=== PATIENT | female | born 1995 | race Caucasian/White ===

== ENCOUNTER 2018-06-17 23:14 | Inpatient (IN) | payer MEDICAID | END 2018-06-26 09:20 | disposition left against medical advice (07) | LOC: PCU 3S 06-18 03:00 → ER 23:14 → PCU 3S 06-18 03:05 ==

== ENCOUNTER 2018-10-14 08:09 | Emergency (ER) | payer MEDICAID ==
[~2018-10-14] VITALS: Ht 167.6 cm; Wt 63.6 kg
[~2018-10-14 08:09] MED LIST: NO HOME MEDS
[2018-10-14 08:51] LABS: BASOPHILS # (AUTO) 0.1 X10'3 (0-0.2); BASOPHILS % (AUTO) 1.2 % (0-1); EOSINOPHILS # (AUTO) 0.1 X10'3 (0-0.9); EOSINOPHILS % (AUTO) 1.1 % (0-6); HEMATOCRIT 38.1 % (35.0-45.0); LYMPHOCYTES # (AUTO) 2.7 X10'3 (1.1-4.8); MEAN CORPUSCULAR HEMOGLOBIN 32.2 PG (27.0-31.0); MEAN CORPUSCULAR HGB CONC 34.1 g/dL (33.0-36.5); MEAN CORPUSCULAR VOLUME 94.5 FL (78-98); MEAN PLATELET VOLUME 7.4 FL (7.4-10.4); MONOCYTES # (AUTO) 0.5 X10'3 (0-0.9); MONOCYTES % (AUTO) 7.8 % (2-12); NEUTROPHILS # (AUTO) 3.2 X10'3 (1.8-7.7); NEUTROPHILS % (AUTO) 48.9 % (42-75); PLATELET COUNT 262 X10'3 (140-440); RED BLOOD COUNT 4.03 X10'6 (4.20-5.60); RED CELL DISTRIBUTION WIDTH 15.3 % (11.5-14.5); WHITE BLOOD COUNT 6.6 X10'3 (4.5-11.0)
--- NOTE | 2018-10-14 08:57 | NUR ---
provider with patient.
[2018-10-14 09:07] LABS: ALANINE AMINOTRANSFERASE 39 U/L (12-78); ALBUMIN 4.3 G/DL (3.4-5.0); ALKALINE PHOSPHATASE 55 IU/L (46-116); ANION GAP 12 (8-16); ASPARTATE AMINO TRANSFERASE 38 U/L (10-37); BILIRUBIN,TOTAL 0.2 MG/DL (0.1-1.0); BLOOD UREA NITROGEN 8 MG/DL (7-18); BUN/CREATININE RATIO 11.3 (6.6-38.0); CALCIUM 8.5 MG/DL (8.5-10.1); CHLORIDE 108 MMOL/L (99-107); CREATININE 0.71 MG/DL (0.40-0.90); GLUCOSE 102 MG/DL (70-104); POTASSIUM 4.5 MMOL/L (3.5-5.1); SODIUM 145 MMOL/L (135-145); TOTAL CARBON DIOXIDE 24.8 MMOL/L (24-32); TOTAL PROTEIN 8.4 G/DL (6.4-8.2); eGFR > 90 ML/MIN
[2018-10-14 09:08] LABS: ETHANOL 0.448 GM/DL (0.0-0.010)
--- NOTE | 2018-10-14 09:13 | NUR ---
pt to overflow after provider care, no nurse to give report to at this time.
--- NOTE | 2018-10-14 10:00 | NUR ---
pt sitting on bed, agreed to give UA.
[2018-10-14 10:31] LABS: CLARITY,URINE CLEAR (Clear); COLOR,URINE STRAW (Yellow); GLUCOSE, URINE NEGATIVE (Neg); KETONES,URINE NEGATIVE (Neg); LEUKOCYTE ESTERASE ,URINE NEGATIVE (Neg); NITRITES, URINE NEGATIVE (Neg); OCCULT BLOOD,URINE LARGE (Neg); PROTEIN,URINE NEGATIVE (Neg); UROBILINOGEN,URINE 0.2 E.U/dL (0.2-1.0)
[2018-10-14 10:36] LABS: UA COLLECTION TYPE CLN CATCH MIDSTREAM
[2018-10-14 10:39] LABS: MUCUS STRANDS FEW /LPF (Neg); SQUAMOUS EPITHELIAL CELL,UR MODERATE /LPF (FEW); WBC,URINE 0-4 /HPF (0-4)
[2018-10-14 10:40] LABS: BACTERIA,URINE FEW /HPF (Neg); RBC,URINE 0-2 /HPF (0-2)
[2018-10-14 10:41] LABS: URINE AMPHETAMINE SCREEN NEGATIVE (Neg); URINE BARBITUATE SCREEN NEGATIVE (Neg); URINE BENZODIAZEPINES SCREEN NEGATIVE (Neg); URINE CANNABINOID SCREEN NEGATIVE (Neg); URINE COCAINE SCREEN NEGATIVE (Neg); URINE METHADONE SCREEN NEGATIVE (Neg); URINE OPIATE SCREEN NEGATIVE (Neg); URINE PHENCYCLIDINE SCREEN NEGATIVE (Neg)
[2018-10-14 10:44] LABS: URINE HCG NEGATIVE (NEG)
--- NOTE | 2018-10-14 11:00 | NUR ---
Pt is cooperative,calm, answers questions defensively.
--- NOTE | 2018-10-14 13:15 | NUR ---
PACKET FAXED TO [facility]
--- NOTE | 2018-10-14 14:29 | NUR ---
Called [facility] and spoke to Graeme. Informed him that pt needs to be seen by a provider.
--- NOTE | 2018-10-14 16:39 | NUR ---
Jose Miguel Durham at bedside assessing pt.
[2018-10-14] MEDS ORDERED: ibuprofen tablet 400 MG TABLET PO ONE (17:15)
--- NOTE | 2018-10-14 18:20 | NUR ---
Received report from Eunice BROCK, patient resting on right side, respirations even, will continue to monitor
[2018-10-14] MEDS ORDERED: prazosin 1mg capsule PO SCH (22:10)
[2018-10-15 05:37] VITALS: BP 118/76
--- NOTE | 2018-10-15 06:35 | NUR ---
Patient sleeping on left side. No distress observed. Continue to monitor.
--- NOTE | 2018-10-15 07:20 | NUR ---
Patient up and asking where breakfast is served. Patient smiling and pleasant. Continue to monitor.
[2018-10-15] MEDS ORDERED: lurasidone 20mg tablet PO SCH (07:30)
--- NOTE | 2018-10-15 08:10 | NUR ---
Patient eating breakfast. No distress observed. Continue to monitor.
--- NOTE | 2018-10-15 10:12 | NUR ---
STEF Edwards evaluating patient. Continue to monitor.
== END 2018-10-15 10:48 | disposition home or self-care (01) ==
LOC: ER 08:10
DX: S46.222A Laceration of muscle, fascia and tendon of other parts of biceps, left arm, initial encounter (principal); S41.112A Laceration without foreign body of left upper arm, initial encounter; R45.851 Suicidal ideations; X83.8XXA Intentional self-harm by other specified means, initial encounter; Y93.89 Activity, other specified; Y92.89 Other specified places as the place of occurrence of the external cause; Y99.8 Other external cause status
CPT/HCPCS: 12004; 36415; 80053; 80305; 80320; 81001; 81025; 84443; 85025; 99284

== ENCOUNTER 2019-10-16 17:51 | Emergency (ER) | payer MEDICAID ==
[~2019-10-16] VITALS: Ht 165.1 cm; Wt 81.8 kg
[2019-10-16 17:57] VITALS: BP 120/72
[2019-10-16] MEDS ORDERED: LIDOcaine Viscous 15ml cup MM STA (18:45)
[2019-10-16] MEDS ORDERED: LIDO20SO16 PO (19:04)
[2019-10-16] MEDS ORDERED: PENI500T2 PO (19:04)
[2019-10-16] MEDS ORDERED: IBUP-1985 PO (19:04)
== END 2019-10-16 19:17 | disposition home or self-care (01) ==
LOC: ER 17:52
DX: K08.89 Other specified disorders of teeth and supporting structures (principal); Z72.89 Other problems related to lifestyle
CPT/HCPCS: 99283; 99284

== ENCOUNTER 2021-02-24 10:37 | Emergency (ER) | payer MEDICAID ==
[~2021-02-24] VITALS: Ht 165.1 cm; Wt 68.2 kg
[~2021-02-24 10:37] MED LIST changes: +IBUP-1985 PO; +LIDO20SO16 PO
[2021-02-24 10:40] VITALS: BP 135/81
[2021-02-24] MEDS ORDERED: ketorolac trometh. 30mg/ml inj. IM ONE (12:50)
[2021-02-24] MEDS ORDERED: LIDOcaine 2% 5ml jelly TOP ONE (12:50)
[2021-02-24] MEDS ORDERED: proCHLORperazine 10 MG/2 ml inj IM ONE (12:50)
[2021-02-24] MEDS ORDERED: diphenhydrAMINE 50 mg/ml inj IM ONE (12:50)
[2021-02-24] MEDS ORDERED: LIDOcaine Viscous 15ml cup MM PRN (14:30)
[2021-02-24] MEDS ORDERED: clindamycin 150mg capsule PO ONE (15:30)
[2021-02-24] MEDS ORDERED: CLIN150C2 PO (15:33)
== END 2021-02-24 15:56 | disposition home or self-care (01) ==
LOC: ER 10:37
DX: K05.219 Aggressive periodontitis, localized, unspecified severity (principal); G43.901 Migraine, unspecified, not intractable, with status migrainosus
CPT/HCPCS: 41800; 96372; 99284; J0780; J1200; J1885